=== PATIENT | female | born 1960 | race African-American/Black ===

== ENCOUNTER 2020-12-03 15:15 | Emergency (ER) | payer OTHER ==
[~2020-12-03] VITALS: Ht 157.5 cm; Wt 64.4 kg
[2020-12-03] MEDS ORDERED: CYCLOBENZAPRINE5 MG PO (17:17)
[2020-12-03 17:27] VITALS: BP 131/68
== END 2020-12-03 17:25 | disposition home or self-care (01) ==
LOC: ER 15:15
DX: M54.2 Cervicalgia (principal); M54.5 Low back pain; M54.6 Pain in thoracic spine; V43.63XA Car passenger injured in collision with pick-up truck in traffic accident, initial encounter; Y93.89 Activity, other specified; Y92.410 Unspecified street and highway as the place of occurrence of the external cause; Y99.8 Other external cause status